=== PATIENT | male | born 1955 | race American Indian/Alaskan Native ===

== ENCOUNTER 2017-04-20 07:00 | Emergency (ER) | payer BC ==
[2017-04-20 08:42] LABS: Bilirubin,Urine NEG (Negative); Blood,Urine LG (Negative); Calcium Oxalate Crystals,Urine 3+; Color,Urine Yellow (Yellow); Mucus,Urine FEW /HPF
[2017-04-20] MEDS ORDERED: SUBLIMAZE IV ONE ×2 (08:58→09:20)
[2017-04-20] MEDS ORDERED: ZOFRAN IV ONE (08:58)
--- NOTE | 2017-04-20 09:02 | Emergency Department Report ---
HPI - General Chief Complaint: Abdominal Pain Time Seen by Provider: 04/20/17 08:16 - HPI HPI: The patient is a 61-year-old male presents for evaluation of left-sided flank pain for the past one to 2 weeks. The patient states that his flank pain has been on and off, constant for the past day, 10/10 in severity, sharp and throbbing in quality, and radiating into the left lateral abdomen. He reports associated hematuria for the past 2 weeks as well. The patient denies fever, chills, night sweats, diarrhea, blood in the stool, dark tarry stool, dysuria, genital discharge, inability to pass flatus. ED Past Medical Hx - Past Medical History Hx Diabetes: Yes Additional medical history: HIGH CHOLESTROL - Surgical History Hx Cholecystectomy: Yes Hx Appendectomy: Yes Additional Surgical History: KNEE SURGERY/ HERNIA - Social History Smoking Status: Never Smoker Substance Use Type: None - Medications Home Medications: Home Medications Medication Instructions Recorded Confirmed Last Taken Type HYDROcodone/APAP 7.5-325 [[place] 1 each PO Q6HR PRN #20 tablet 04/20/17 Unknown Rx 7.5-325 mg TAB] Ibuprofen [Motrin] 800 mg PO Q8HR PRN #15 tablet 04/20/17 Unknown Rx ED Review of Systems ROS: Stated complaint: FLANK PAIN Other details as noted in HPI Constitutional: denies: fever ENT: denies: throat or neck pain Respiratory: denies: cough, shortness of breath Cardiovascular: denies: chest pain Endocrine: denies unexplained weight loss or gain Gastrointestinal: reports: abdominal pain, nausea Genitourinary: reports: Flank pain and hematuria, denies dysuria Musculoskeletal: denies: leg swelling Skin: denies: rash Neurological: denies: headache Hematological/Lymphatic: denies: easy bleeding or easy bruising Psych: denies sadness or hopelessness Physical Exam - Physical Exam Vital Signs: Vital Signs 04/20/17 07:49 Temperature 98.5 F Pulse Rate 90 Respiratory 28 H Rate Blood Pressure 194/99 O2 Sat by Pulse 95 Oximetry Physical Exam: General: well-nourished, well-developed, no acute distress Head: Normocephalic, atraumatic Eyes: normal sclera ENT: Mucous membranes are pink and moist Neck: trachea midline, neck supple, No neck stiffness, no cervical adenopathy Respiratory: Breath sounds equal bilaterally, no wheezing, rales, or rhonchi Cardio: S1 and S2 present, no murmurs, rubs, gallops, capillary refill is brisk Abdomen: Normoactive bowel sounds, soft abdomen, no rigidity, no guarding or rebound tenderness Chest WALL/Back: No tenderness to palpation of the chest wall, left CVA tenderness with percussion present, no ecchymosis, swelling or fluctuance Musc: No pitting edema Skin: No rash Neuro: no facial drooping, normal speech Psych: Normal affect ED Course Vital Signs 04/20/17 07:49 Temperature 98.5 F Pulse Rate 90 Respiratory 28 H Rate Blood Pressure 194/99 O2 Sat by Pulse 95 Oximetry ED Medical Decision Making - Lab Data Result diagrams: 04/20/17 09:02 04/20/17 09:02 - Medical Decision Making The patient was seen and examined by myself. The patient is placed on a youth nutritional monitor and continuous pulse ox. On initial evaluation, the patient was found to be in no distress. Evaluation orders were placed. The patient is given IV fentanyl for his pain. Lab results exhibited urinalysis positive for calcium oxalate stones, and otherwise labs were reassuring including normal creatinine, LFTs, lipase, and urinalysis negative for findings consistent with UTI. CT scan abdomen and pelvis reveals a 5 mm left ureteral stone with mild associated hydronephrosis. The patient was reevaluated and reported that his pain was improved but persisted. The patient is given IV Toradol and dilaudid. The patient was again reevaluated and he now reports that his symptoms are markedly improved. The patient is stable for discharge with outpatient follow- up. The patient is given follow-up and return instructions. The patient expressed understanding and agreed with the plan. The patient is discharged in stable condition. Critical care attestation.: If time is entered above; I have spent that time in minutes in the direct care of this critically ill patient, excluding procedure time. ED Disposition Clinical Impression: Calcium ureterolithiasis, Acute left flank pain, Dehydration Disposition: TO HOME OR SELFCARE Is pt being admited?: No Does the pt Need Aspirin: No Condition: Stable Instructions: Kidney Stones (ED), How to Strain Your Urine (ED) Prescriptions: HYDROcodone/APAP 7.5-325 [[place] 7.5-325 mg TAB] 1 each PO Q6HR PRN #20 tablet PRN Reason: Pain Ibuprofen [Motrin] 800 mg PO Q8HR PRN #15 tablet PRN Reason: Pain Referrals: ARMANDO JOSEPH MD [Staff Physician] - 3-5 Days Time of Disposition: 10:08
[2017-04-20] MEDS: NACL 0.9% 1000 ML 1,000 ML IV ONE ×2 (09:13→09:20)
[2017-04-20 09:29] LABS: Basophils % (Auto) 0.1 % (0.0-1.8); Eosinophils % (Auto) 0.1 % (0.0-4.3); Hematocrit 48.1 % (35.5-45.6); Lymphocytes # (Auto) 0.9 K/mm3 (1.2-5.4); Lymphocytes % (Auto) 6.4 % (13.4-35.0); Mean Corpuscular HGB Conc 33 % (32-34); Mean Corpuscular Hemoglobin 30 pg (28-32); Mean Corpuscular Volume 89 fl (84-94); Monocytes # (Auto) 1.3 K/mm3 (0.0-0.8); Monocytes % (Auto) 9.6 % (0.0-7.3); Platelet Count 261 K/mm3 (140-440); Red Blood Count 5.41 M/mm3 (3.65-5.03); Red Cell Distribution Width 14.2 % (13.2-15.2)
[2017-04-20 09:35] LABS: BUN/Creatinine Ratio 13; Blood Urea Nitrogen 13 mg/dL (9-20); Calcium 9.2 mg/dL (8.4-10.2); Hemolysis Index 6
--- NOTE | 2017-04-20 09:55 | Cat Scan Report ---
CT abdomen and pelvis without contrast: Left flank pain. Transverse images are obtained from the lower chest to the ischium with coronal and sagittal 2-D reformatted images. The visualized lungs are clear. The patient's had a cholecystectomy. The distal esophagus is slightly dilated and there is suspicion that there may be a hiatus hernia. The abdominal organs are not otherwise remarkable. The right kidney appears normal. There is mild hydronephrosis on the left. A small intrarenal calculus is noted in the mid kidney. The proximal ureter is dilated to its midportion where there is a 5 mm obstructing calculus. The urinary tract is not otherwise remarkable. The unopacified bowel and mesentery appear normal. There is a grade 1 anterior L5 subluxation with narrowing of the L5-S1 disc and degenerative gas. Impressions: 1. Obstructing 5 mm left mid ureteral calculus. Small left renal calculus. 2. Questionable it is hernia. 3. Degenerative L5-S1 changes with subluxation.
[2017-04-20] MEDS ORDERED: DILAUDID IV ONE (10:15)
[2017-04-20] MEDS ORDERED: TORADOL IV ONE (10:20)
[2017-04-20] MEDS ORDERED: TORADOL ONE (10:20)
[2017-04-20 11:12] VITALS: BP 130/84
== END 2017-04-20 11:12 | disposition home or self-care (01) ==
LOC: ED 07:00
DX: N20.1 Calculus of ureter (principal); E86.0 Dehydration; E11.9 Type 2 diabetes mellitus without complications; E78.00 Pure hypercholesterolemia, unspecified; Z90.49 Acquired absence of other specified parts of digestive tract
CPT/HCPCS: 36415; 74176; 80048; 81001; 83880; 85025; 96361; 96374; 96375; 99284; J1170; J1885; J2405; J3010; J7030